=== PATIENT | female | born 1990 | race Two or more races ===

== ENCOUNTER → 2017-06-23 | Outpatient (CLI) | payer OTHER ==
[~2017-06-23] VITALS: Ht 175.3 cm; Wt 118.0 kg
[~2017-06-23] MED LIST: COLL30OI TP; LEVE500T53 PO; LEVO50 PO; NAPR-58 PO; RIVA15T PO
[2017-06-23 13:37] VITALS: BP 131/72
== END | disposition home or self-care (01) ==
LOC: HBOWC 13:05
PROVIDERS: ATTEND Emergency Medicine
DX: I87.2 Venous insufficiency (chronic) (peripheral) (principal); L97.821 Non-pressure chronic ulcer of other part of left lower leg limited to breakdown of skin; E03.9 Hypothyroidism, unspecified; E66.9 Obesity, unspecified; Z86.718 Personal history of other venous thrombosis and embolism
CPT/HCPCS: 97597; G0463

== ENCOUNTER → 2017-07-14 | Outpatient (CLI) | payer OTHER ==
[~2017-07-14] MED LIST changes: +LIDOCAINE HCL 2% 5 ML JELLY TP ONE; +SULF1TAB42 PO
[2017-07-14 14:56] VITALS: BP 141/80
== END | disposition home or self-care (01) ==
LOC: HBOWC 14:44
PROVIDERS: ATTEND Emergency Medicine
DX: S81.802D Unspecified open wound, left lower leg, subsequent encounter (principal); E03.9 Hypothyroidism, unspecified; E66.9 Obesity, unspecified; Z86.718 Personal history of other venous thrombosis and embolism
CPT/HCPCS: 11042

== ENCOUNTER → 2017-07-24 | Outpatient (CLI) | payer OTHER ==
[~2017-07-24] MED LIST changes: -LIDOCAINE HCL 2% 5 ML JELLY TP ONE
[2017-07-24 11:30] VITALS: BP 125/63
== END | disposition home or self-care (01) ==
LOC: HBOWC 11:00
PROVIDERS: ATTEND Emergency Medicine
DX: S81.802D Unspecified open wound, left lower leg, subsequent encounter (principal); E66.9 Obesity, unspecified; E03.9 Hypothyroidism, unspecified; Z79.01 Long term (current) use of anticoagulants; Z86.718 Personal history of other venous thrombosis and embolism; X58.XXXD Exposure to other specified factors, subsequent encounter
CPT/HCPCS: 11042

== ENCOUNTER → 2017-07-31 | Outpatient (CLI) | payer OTHER ==
[~2017-07-31] MED LIST changes: +LIDOCAINE HCL 2% 5 ML JELLY TP ONE
[2017-07-31 10:50] VITALS: BP 137/81
== END | disposition home or self-care (01) ==
LOC: HBOWC 10:17
PROVIDERS: ATTEND Emergency Medicine
DX: S91.002D Unspecified open wound, left ankle, subsequent encounter (principal); S81.802D Unspecified open wound, left lower leg, subsequent encounter; I87.8 Other specified disorders of veins; E03.9 Hypothyroidism, unspecified; E66.9 Obesity, unspecified; Z86.718 Personal history of other venous thrombosis and embolism; Z79.01 Long term (current) use of anticoagulants; X58.XXXD Exposure to other specified factors, subsequent encounter
CPT/HCPCS: 11042

== ENCOUNTER → 2017-08-14 | Outpatient (CLI) | payer OTHER ==
[2017-08-14 11:10] VITALS: BP 116/71
== END | disposition home or self-care (01) ==
LOC: HBOWC 10:55
PROVIDERS: ATTEND Emergency Medicine
DX: S91.002D Unspecified open wound, left ankle, subsequent encounter (principal); S81.802D Unspecified open wound, left lower leg, subsequent encounter; I87.2 Venous insufficiency (chronic) (peripheral); E03.8 Other specified hypothyroidism; E66.9 Obesity, unspecified; Z79.01 Long term (current) use of anticoagulants; Z86.718 Personal history of other venous thrombosis and embolism; X58.XXXD Exposure to other specified factors, subsequent encounter
CPT/HCPCS: 11042

== ENCOUNTER → 2017-09-14 | Outpatient (CLI) | payer OTHER ==
[~2017-09-14] MED LIST changes: -LIDOCAINE HCL 2% 5 ML JELLY TP ONE; +LIDOCAINE HCL 4% 50 ML SOLUTION TP ONE
[2017-09-14 11:46] VITALS: BP 144/83
== END | disposition home or self-care (01) ==
LOC: HBOWC 10:57
PROVIDERS: ATTEND Surgery Plastic and Reconstructive Surgery
DX: S81.802D Unspecified open wound, left lower leg, subsequent encounter (principal); S91.002D Unspecified open wound, left ankle, subsequent encounter; I87.2 Venous insufficiency (chronic) (peripheral); E03.8 Other specified hypothyroidism; E66.9 Obesity, unspecified; Z79.01 Long term (current) use of anticoagulants; Z86.718 Personal history of other venous thrombosis and embolism; X58.XXXD Exposure to other specified factors, subsequent encounter
CPT/HCPCS: 11042

== ENCOUNTER → 2017-09-29 | Outpatient (CLI) | payer OTHER ==
[~2017-09-29] MED LIST changes: +GENTAMICIN SULFATE 0.1% 15 GM OINTMENT TP ONE; +LIDOCAINE HCL 2% 5 ML JELLY TP ONE; -LIDOCAINE HCL 4% 50 ML SOLUTION TP ONE
[2017-09-29 13:30] VITALS: BP 143/80
== END | disposition home or self-care (01) ==
LOC: HBOWC 13:36
PROVIDERS: ATTEND Emergency Medicine
DX: S81.802D Unspecified open wound, left lower leg, subsequent encounter (principal); E66.9 Obesity, unspecified; E03.9 Hypothyroidism, unspecified; Z86.718 Personal history of other venous thrombosis and embolism; X58.XXXD Exposure to other specified factors, subsequent encounter
CPT/HCPCS: 11042

== ENCOUNTER → 2017-10-06 | Outpatient (CLI) | payer OTHER ==
[~2017-10-06] MED LIST changes: -COLL30OI TP; -LIDOCAINE HCL 2% 5 ML JELLY TP ONE; +LIDOCAINE HCL 4% 50 ML SOLUTION TP ONE; -SULF1TAB42 PO
[2017-10-06 14:07] VITALS: BP 116/57
== END | disposition home or self-care (01) ==
LOC: HBOWC 13:19
PROVIDERS: ATTEND Emergency Medicine
DX: S81.802D Unspecified open wound, left lower leg, subsequent encounter (principal); S91.002D Unspecified open wound, left ankle, subsequent encounter; E66.9 Obesity, unspecified; E03.8 Other specified hypothyroidism; I87.2 Venous insufficiency (chronic) (peripheral); Z86.718 Personal history of other venous thrombosis and embolism; Z79.01 Long term (current) use of anticoagulants; X58.XXXD Exposure to other specified factors, subsequent encounter
CPT/HCPCS: 11042

== ENCOUNTER → 2017-10-13 | Outpatient (CLI) | payer OTHER ==
[2017-10-13 13:51] VITALS: BP 125/70
== END | disposition home or self-care (01) ==
LOC: HBOWC 12:44
PROVIDERS: ATTEND Emergency Medicine
DX: S81.802D Unspecified open wound, left lower leg, subsequent encounter (principal); I87.2 Venous insufficiency (chronic) (peripheral); E03.8 Other specified hypothyroidism; E66.9 Obesity, unspecified; Z86.718 Personal history of other venous thrombosis and embolism; Z79.01 Long term (current) use of anticoagulants; X58.XXXD Exposure to other specified factors, subsequent encounter
CPT/HCPCS: 11042

== ENCOUNTER → 2017-10-29 | Outpatient (CLI) | payer OTHER ==
[~2017-10-29] MED LIST changes: -GENTAMICIN SULFATE 0.1% 15 GM OINTMENT TP ONE; +LIDOCAINE HCL 2% 5 ML JELLY TP ONE; -LIDOCAINE HCL 4% 50 ML SOLUTION TP ONE
[2017-10-29 13:30] VITALS: BP 124/70
== END | disposition home or self-care (01) ==
LOC: HBOWC 13:30
PROVIDERS: ATTEND Nurse Practitioner Adult Health
DX: I87.2 Venous insufficiency (chronic) (peripheral) (principal); L97.821 Non-pressure chronic ulcer of other part of left lower leg limited to breakdown of skin; E66.9 Obesity, unspecified; E03.9 Hypothyroidism, unspecified; Z86.718 Personal history of other venous thrombosis and embolism
CPT/HCPCS: 11042

== ENCOUNTER → 2017-11-05 | Outpatient (CLI) | payer OTHER ==
[~2017-11-05] MED LIST changes: +GENTAMICIN SULFATE 0.1% 15 GM OINTMENT TP ONE; +LIDOCAINE HCL 2% 5 ML JELLY ONE; -LIDOCAINE HCL 2% 5 ML JELLY TP ONE; +LIDOCAINE HCL 4% 50 ML SOLUTION ONE
[2017-11-05 13:44] VITALS: BP 133/67
== END | disposition home or self-care (01) ==
LOC: HBOWC 13:30
PROVIDERS: ATTEND Nurse Practitioner Adult Health
DX: I87.2 Venous insufficiency (chronic) (peripheral) (principal); L97.821 Non-pressure chronic ulcer of other part of left lower leg limited to breakdown of skin; E03.9 Hypothyroidism, unspecified; E66.9 Obesity, unspecified; Z86.718 Personal history of other venous thrombosis and embolism

== ENCOUNTER → 2017-11-19 | Outpatient (CLI) | payer OTHER ==
[~2017-11-19] MED LIST changes: +GENTAMICIN 0.1% TP; -LIDOCAINE HCL 2% 5 ML JELLY ONE; -LIDOCAINE HCL 4% 50 ML SOLUTION ONE; +LIDOCAINE HCL 4% 50 ML SOLUTION TP ONE
[2017-11-19 15:00] VITALS: BP 130/81
== END | disposition home or self-care (01) ==
LOC: HBOWC 13:52
PROVIDERS: ATTEND Nurse Practitioner Adult Health
DX: I87.2 Venous insufficiency (chronic) (peripheral) (principal); L97.821 Non-pressure chronic ulcer of other part of left lower leg limited to breakdown of skin; E03.9 Hypothyroidism, unspecified; E66.9 Obesity, unspecified; E03.8 Other specified hypothyroidism; Z86.718 Personal history of other venous thrombosis and embolism; Z79.01 Long term (current) use of anticoagulants
CPT/HCPCS: 11042

== ENCOUNTER → 2017-11-26 | Outpatient (CLI) | payer OTHER ==
[2017-11-26 13:43] VITALS: BP 116/69
== END | disposition home or self-care (01) ==
LOC: HBOWC 13:15
PROVIDERS: ATTEND Nurse Practitioner Adult Health
DX: S91.002D Unspecified open wound, left ankle, subsequent encounter (principal); I87.2 Venous insufficiency (chronic) (peripheral); E66.9 Obesity, unspecified; E03.8 Other specified hypothyroidism; Z86.718 Personal history of other venous thrombosis and embolism; Z79.01 Long term (current) use of anticoagulants; X58.XXXD Exposure to other specified factors, subsequent encounter
CPT/HCPCS: 11042

== ENCOUNTER → 2017-12-17 | Outpatient (CLI) | payer OTHER ==
[2017-12-17 13:50] VITALS: BP 131/72
== END | disposition home or self-care (01) ==
LOC: HBOWC 13:24
PROVIDERS: ATTEND Nurse Practitioner Adult Health
DX: L97.821 Non-pressure chronic ulcer of other part of left lower leg limited to breakdown of skin (principal); I87.2 Venous insufficiency (chronic) (peripheral); E66.9 Obesity, unspecified; E03.8 Other specified hypothyroidism; Z86.718 Personal history of other venous thrombosis and embolism; Z79.01 Long term (current) use of anticoagulants

== ENCOUNTER → 2017-12-31 | Outpatient (CLI) | payer OTHER ==
[~2017-12-31] MED LIST changes: -GENTAMICIN SULFATE 0.1% 15 GM OINTMENT TP ONE; -LIDOCAINE HCL 4% 50 ML SOLUTION TP ONE
[2017-12-31 14:08] VITALS: BP 126/67
== END | disposition home or self-care (01) ==
LOC: HBOWC 13:07
PROVIDERS: ATTEND Nurse Practitioner Adult Health
DX: L97.821 Non-pressure chronic ulcer of other part of left lower leg limited to breakdown of skin (principal); I87.2 Venous insufficiency (chronic) (peripheral); E66.9 Obesity, unspecified; E03.8 Other specified hypothyroidism; Z86.718 Personal history of other venous thrombosis and embolism

== ENCOUNTER → 2018-01-07 | Outpatient (CLI) | payer OTHER ==
[~2018-01-07] MED LIST changes: +CHLORHEXIDINE GLUCONATE 4% 118 ML TOPICAL LIQUID TP ONE; -GENTAMICIN 0.1% TP
[2018-01-07 14:14] VITALS: BP 129/77
== END | disposition home or self-care (01) ==
LOC: HBOWC 14:09
PROVIDERS: ATTEND Nurse Practitioner Adult Health
DX: I87.2 Venous insufficiency (chronic) (peripheral) (principal); L97.821 Non-pressure chronic ulcer of other part of left lower leg limited to breakdown of skin; E66.9 Obesity, unspecified; E03.8 Other specified hypothyroidism; Z79.01 Long term (current) use of anticoagulants; Z86.718 Personal history of other venous thrombosis and embolism

== ENCOUNTER → 2018-02-18 | Outpatient (CLI) | payer OTHER ==
[~2018-02-18] MED LIST changes: -CHLORHEXIDINE GLUCONATE 4% 118 ML TOPICAL LIQUID TP ONE
[2018-02-18 13:33] VITALS: BP 121/64
== END | disposition home or self-care (01) ==
LOC: HBOWC 13:14
PROVIDERS: ATTEND Nurse Practitioner Adult Health
DX: E11.622 Type 2 diabetes mellitus with other skin ulcer (principal); L97.821 Non-pressure chronic ulcer of other part of left lower leg limited to breakdown of skin; S91.002D Unspecified open wound, left ankle, subsequent encounter; I87.2 Venous insufficiency (chronic) (peripheral); E66.9 Obesity, unspecified; E03.8 Other specified hypothyroidism; Z86.718 Personal history of other venous thrombosis and embolism; Z79.01 Long term (current) use of anticoagulants; X58.XXXD Exposure to other specified factors, subsequent encounter

== ENCOUNTER → 2018-02-25 | Outpatient (CLI) | payer OTHER ==
[2018-02-25 14:51] VITALS: BP 144/71
== END | disposition home or self-care (01) ==
LOC: HBOWC 13:26
PROVIDERS: ATTEND Nurse Practitioner Adult Health
DX: E11.622 Type 2 diabetes mellitus with other skin ulcer (principal); L97.321 Non-pressure chronic ulcer of left ankle limited to breakdown of skin; I87.8 Other specified disorders of veins; E66.9 Obesity, unspecified; E03.8 Other specified hypothyroidism; Z86.718 Personal history of other venous thrombosis and embolism; Z79.01 Long term (current) use of anticoagulants

== ENCOUNTER → 2018-03-11 | Outpatient (CLI) | payer OTHER ==
[2018-03-11 13:44] VITALS: BP 138/83
== END | disposition home or self-care (01) ==
LOC: HBOWC 13:30
PROVIDERS: ATTEND Nurse Practitioner Adult Health
DX: E11.622 Type 2 diabetes mellitus with other skin ulcer (principal); L97.321 Non-pressure chronic ulcer of left ankle limited to breakdown of skin; L97.221 Non-pressure chronic ulcer of left calf limited to breakdown of skin; S81.801D Unspecified open wound, right lower leg, subsequent encounter; E66.9 Obesity, unspecified; E03.9 Hypothyroidism, unspecified; I87.2 Venous insufficiency (chronic) (peripheral); Z86.718 Personal history of other venous thrombosis and embolism; Z79.01 Long term (current) use of anticoagulants; X58.XXXD Exposure to other specified factors, subsequent encounter

== ENCOUNTER → 2018-03-18 | Outpatient (CLI) | payer OTHER ==
[2018-03-18 14:28] VITALS: BP 127/77
== END | disposition home or self-care (01) ==
LOC: HBOWC 14:11
PROVIDERS: ATTEND Nurse Practitioner Adult Health
DX: L97.321 Non-pressure chronic ulcer of left ankle limited to breakdown of skin (principal); E66.9 Obesity, unspecified; I87.2 Venous insufficiency (chronic) (peripheral); E03.8 Other specified hypothyroidism; Z86.718 Personal history of other venous thrombosis and embolism; Z79.01 Long term (current) use of anticoagulants

== ENCOUNTER → 2018-03-25 | Outpatient (CLI) | payer OTHER ==
[2018-03-25 14:59] VITALS: BP 146/92
== END | disposition home or self-care (01) ==
LOC: HBOWC 13:34
PROVIDERS: ATTEND Nurse Practitioner Adult Health
DX: L97.321 Non-pressure chronic ulcer of left ankle limited to breakdown of skin (principal); L97.221 Non-pressure chronic ulcer of left calf limited to breakdown of skin; E66.9 Obesity, unspecified; E03.8 Other specified hypothyroidism; I87.2 Venous insufficiency (chronic) (peripheral); E03.9 Hypothyroidism, unspecified; Z86.718 Personal history of other venous thrombosis and embolism; Z79.01 Long term (current) use of anticoagulants

== ENCOUNTER → 2018-04-08 | Outpatient (CLI) | payer OTHER ==
[2018-04-08 13:56] VITALS: BP 137/88
== END | disposition home or self-care (01) ==
LOC: HBOWC 13:40
PROVIDERS: ATTEND Nurse Practitioner Adult Health
DX: L97.321 Non-pressure chronic ulcer of left ankle limited to breakdown of skin (principal); I87.2 Venous insufficiency (chronic) (peripheral); E66.9 Obesity, unspecified; E03.8 Other specified hypothyroidism; Z79.01 Long term (current) use of anticoagulants; Z86.718 Personal history of other venous thrombosis and embolism

== ENCOUNTER → 2018-04-22 | Outpatient (CLI) | payer OTHER ==
[2018-04-22 13:54] VITALS: BP 135/83
== END | disposition home or self-care (01) ==
LOC: HBOWC 13:25
PROVIDERS: ATTEND Nurse Practitioner Adult Health
DX: L97.321 Non-pressure chronic ulcer of left ankle limited to breakdown of skin (principal); I87.2 Venous insufficiency (chronic) (peripheral); E66.9 Obesity, unspecified; E03.8 Other specified hypothyroidism; Z79.01 Long term (current) use of anticoagulants; Z86.718 Personal history of other venous thrombosis and embolism
CPT/HCPCS: 97597

== ENCOUNTER → 2018-05-06 | Outpatient (CLI) | payer OTHER ==
[2018-05-06 13:33] VITALS: BP 118/65
== END | disposition home or self-care (01) ==
LOC: HBOWC 13:23
PROVIDERS: ATTEND Nurse Practitioner Adult Health
DX: L97.321 Non-pressure chronic ulcer of left ankle limited to breakdown of skin (principal); I87.2 Venous insufficiency (chronic) (peripheral); E66.9 Obesity, unspecified; E03.8 Other specified hypothyroidism; Z79.01 Long term (current) use of anticoagulants; Z86.718 Personal history of other venous thrombosis and embolism
CPT/HCPCS: 11042

== ENCOUNTER → 2018-05-20 | Outpatient (CLI) | payer OTHER ==
[2018-05-20 11:57] VITALS: BP 140/76
== END | disposition home or self-care (01) ==
LOC: HBOWC 11:14
PROVIDERS: ATTEND Nurse Practitioner Adult Health
DX: L97.321 Non-pressure chronic ulcer of left ankle limited to breakdown of skin (principal); I87.2 Venous insufficiency (chronic) (peripheral); E66.9 Obesity, unspecified; E03.8 Other specified hypothyroidism; Z79.01 Long term (current) use of anticoagulants; Z86.718 Personal history of other venous thrombosis and embolism

== ENCOUNTER → 2018-05-27 | Outpatient (CLI) | payer OTHER ==
[2018-05-27 11:10] VITALS: BP 146/76
== END | disposition home or self-care (01) ==
LOC: HBOWC 10:58
PROVIDERS: ATTEND Nurse Practitioner Adult Health
DX: L97.321 Non-pressure chronic ulcer of left ankle limited to breakdown of skin (principal); I87.2 Venous insufficiency (chronic) (peripheral); E66.9 Obesity, unspecified; E03.8 Other specified hypothyroidism; Z79.01 Long term (current) use of anticoagulants; Z86.718 Personal history of other venous thrombosis and embolism

== ENCOUNTER → 2018-06-03 | Outpatient (CLI) | payer OTHER ==
[2018-06-03 11:25] VITALS: BP 126/67
== END | disposition home or self-care (01) ==
LOC: HBOWC 11:10
PROVIDERS: ATTEND Nurse Practitioner Adult Health
DX: L97.321 Non-pressure chronic ulcer of left ankle limited to breakdown of skin (principal); I87.2 Venous insufficiency (chronic) (peripheral); E66.9 Obesity, unspecified; E03.8 Other specified hypothyroidism; Z79.01 Long term (current) use of anticoagulants; Z86.718 Personal history of other venous thrombosis and embolism

== ENCOUNTER → 2018-06-17 | Outpatient (CLI) | payer OTHER ==
[2018-06-17 11:26] VITALS: BP 130/63
== END | disposition home or self-care (01) ==
LOC: HBOWC 11:18
PROVIDERS: ATTEND Nurse Practitioner Adult Health
DX: L97.321 Non-pressure chronic ulcer of left ankle limited to breakdown of skin (principal); I87.2 Venous insufficiency (chronic) (peripheral); E66.9 Obesity, unspecified; E03.8 Other specified hypothyroidism; Z79.01 Long term (current) use of anticoagulants; Z86.718 Personal history of other venous thrombosis and embolism

== ENCOUNTER → 2018-07-01 | Outpatient (CLI) | payer OTHER ==
[2018-07-01 11:35] VITALS: BP 144/87
== END | disposition home or self-care (01) ==
LOC: HBOWC 11:30
PROVIDERS: ATTEND Nurse Practitioner Adult Health
DX: L97.321 Non-pressure chronic ulcer of left ankle limited to breakdown of skin (principal); L97.821 Non-pressure chronic ulcer of other part of left lower leg limited to breakdown of skin; I87.2 Venous insufficiency (chronic) (peripheral); E66.9 Obesity, unspecified; E03.8 Other specified hypothyroidism; Z86.718 Personal history of other venous thrombosis and embolism; Z79.01 Long term (current) use of anticoagulants

== ENCOUNTER → 2018-07-08 | Outpatient (CLI) | payer OTHER ==
[2018-07-08 11:01] VITALS: BP 128/80
== END | disposition home or self-care (01) ==
LOC: HBOWC 10:44
PROVIDERS: ATTEND Nurse Practitioner Adult Health
DX: L97.321 Non-pressure chronic ulcer of left ankle limited to breakdown of skin (principal); L97.821 Non-pressure chronic ulcer of other part of left lower leg limited to breakdown of skin; I87.2 Venous insufficiency (chronic) (peripheral); E66.9 Obesity, unspecified; E03.8 Other specified hypothyroidism; Z86.718 Personal history of other venous thrombosis and embolism; Z79.01 Long term (current) use of anticoagulants

== ENCOUNTER → 2018-07-15 | Outpatient (CLI) | payer OTHER ==
[2018-07-15 11:22] VITALS: BP 110/59
== END | disposition home or self-care (01) ==
LOC: HBOWC 10:57
PROVIDERS: ATTEND Nurse Practitioner Adult Health
DX: L97.321 Non-pressure chronic ulcer of left ankle limited to breakdown of skin (principal); L97.821 Non-pressure chronic ulcer of other part of left lower leg limited to breakdown of skin; I87.2 Venous insufficiency (chronic) (peripheral); E66.9 Obesity, unspecified; E03.9 Hypothyroidism, unspecified; Z86.718 Personal history of other venous thrombosis and embolism; Z79.01 Long term (current) use of anticoagulants

== ENCOUNTER → 2018-07-29 | Outpatient (CLI) | payer OTHER ==
[~2018-07-29] MED LIST changes: +CHLORHEXIDINE GLUCONATE 4% 118 ML TOPICAL LIQUID TP ONE
[2018-07-29 11:26] VITALS: BP 133/73
== END | disposition home or self-care (01) ==
LOC: HBOWC 10:54
PROVIDERS: ATTEND Nurse Practitioner Adult Health
DX: L97.321 Non-pressure chronic ulcer of left ankle limited to breakdown of skin (principal); L97.821 Non-pressure chronic ulcer of other part of left lower leg limited to breakdown of skin; I87.2 Venous insufficiency (chronic) (peripheral); E66.9 Obesity, unspecified; E03.9 Hypothyroidism, unspecified; Z86.718 Personal history of other venous thrombosis and embolism; Z79.01 Long term (current) use of anticoagulants

== ENCOUNTER → 2018-08-19 | Outpatient (CLI) | payer OTHER ==
[~2018-08-19] MED LIST changes: -CHLORHEXIDINE GLUCONATE 4% 118 ML TOPICAL LIQUID TP ONE
[2018-08-19 11:50] VITALS: BP 139/90
== END | disposition home or self-care (01) ==
LOC: HBOWC 10:53
PROVIDERS: ATTEND Nurse Practitioner Adult Health
DX: L97.321 Non-pressure chronic ulcer of left ankle limited to breakdown of skin (principal); L97.821 Non-pressure chronic ulcer of other part of left lower leg limited to breakdown of skin; I87.2 Venous insufficiency (chronic) (peripheral); E66.9 Obesity, unspecified; E03.9 Hypothyroidism, unspecified; Z86.718 Personal history of other venous thrombosis and embolism; Z79.01 Long term (current) use of anticoagulants

== ENCOUNTER → 2018-08-26 | Outpatient (CLI) | payer OTHER ==
[~2018-08-26] MED LIST changes: +LIDOCAINE 2% 5 ML JELLY TP ONE
[2018-08-26 11:14] VITALS: BP 126/75
== END | disposition home or self-care (01) ==
LOC: HBOWC 10:23
PROVIDERS: ATTEND Nurse Practitioner Adult Health
DX: L97.321 Non-pressure chronic ulcer of left ankle limited to breakdown of skin (principal); L97.821 Non-pressure chronic ulcer of other part of left lower leg limited to breakdown of skin; I87.2 Venous insufficiency (chronic) (peripheral); E66.9 Obesity, unspecified; E03.9 Hypothyroidism, unspecified; Z86.718 Personal history of other venous thrombosis and embolism; Z79.01 Long term (current) use of anticoagulants

== ENCOUNTER → 2018-09-02 | Outpatient (CLI) | payer OTHER ==
[~2018-09-02] MED LIST changes: -LIDOCAINE 2% 5 ML JELLY TP ONE
[2018-09-02 10:56] VITALS: BP 128/85
== END | disposition home or self-care (01) ==
LOC: HBOWC 10:37
PROVIDERS: ATTEND Nurse Practitioner Adult Health
DX: L97.321 Non-pressure chronic ulcer of left ankle limited to breakdown of skin (principal); S81.802D Unspecified open wound, left lower leg, subsequent encounter; I87.2 Venous insufficiency (chronic) (peripheral); I82.409 Acute embolism and thrombosis of unspecified deep veins of unspecified lower extremity; E03.9 Hypothyroidism, unspecified; E66.9 Obesity, unspecified; Z79.01 Long term (current) use of anticoagulants; X58.XXXD Exposure to other specified factors, subsequent encounter

== ENCOUNTER → 2018-09-09 | Outpatient (CLI) | payer OTHER ==
[2018-09-09 11:30] VITALS: BP 139/70
== END | disposition home or self-care (01) ==
LOC: HBOWC 11:26
PROVIDERS: ATTEND Nurse Practitioner Adult Health
DX: L97.322 Non-pressure chronic ulcer of left ankle with fat layer exposed (principal); I87.2 Venous insufficiency (chronic) (peripheral); I82.493 Acute embolism and thrombosis of other specified deep vein of lower extremity, bilateral; E03.9 Hypothyroidism, unspecified; E66.9 Obesity, unspecified; Z79.01 Long term (current) use of anticoagulants

== ENCOUNTER → 2018-09-23 | Outpatient (CLI) | payer OTHER ==
[2018-09-23 11:05] VITALS: BP 126/80
== END | disposition home or self-care (01) ==
LOC: HBOWC 10:50
PROVIDERS: ATTEND Nurse Practitioner Adult Health
DX: L97.822 Non-pressure chronic ulcer of other part of left lower leg with fat layer exposed (principal); L97.321 Non-pressure chronic ulcer of left ankle limited to breakdown of skin; I82.5Z3 Chronic embolism and thrombosis of unspecified deep veins of distal lower extremity, bilateral; I87.2 Venous insufficiency (chronic) (peripheral); E03.9 Hypothyroidism, unspecified; E66.9 Obesity, unspecified; Z79.01 Long term (current) use of anticoagulants

== ENCOUNTER → 2018-10-14 | Outpatient (CLI) | payer OTHER ==
[2018-10-14 11:10] VITALS: BP 135/77
== END | disposition home or self-care (01) ==
LOC: HBOWC 10:49
PROVIDERS: ATTEND Nurse Practitioner Adult Health
DX: L97.822 Non-pressure chronic ulcer of other part of left lower leg with fat layer exposed (principal); L97.321 Non-pressure chronic ulcer of left ankle limited to breakdown of skin; I87.2 Venous insufficiency (chronic) (peripheral); I82.409 Acute embolism and thrombosis of unspecified deep veins of unspecified lower extremity; E03.9 Hypothyroidism, unspecified; E66.9 Obesity, unspecified; Z79.01 Long term (current) use of anticoagulants

== ENCOUNTER → 2018-10-28 | Outpatient (CLI) | payer OTHER ==
[2018-10-28 11:55] VITALS: BP 141/85
== END | disposition home or self-care (01) ==
LOC: HBOWC 11:37
PROVIDERS: ATTEND Nurse Practitioner Adult Health
DX: L97.322 Non-pressure chronic ulcer of left ankle with fat layer exposed (principal); I87.2 Venous insufficiency (chronic) (peripheral); I82.593 Chronic embolism and thrombosis of other specified deep vein of lower extremity, bilateral; E03.9 Hypothyroidism, unspecified; E66.9 Obesity, unspecified; Z79.01 Long term (current) use of anticoagulants

== ENCOUNTER 2021-04-11 19:38 | Emergency (ER) | payer OTHER ==
[~2021-04-11] VITALS: Ht 175.3 cm; Wt 113.6 kg
[~2021-04-11 19:38] MED LIST changes: +NAPR-1025 PO; -NAPR-58 PO
[2021-04-11 20:10] LABS: GLUCOSE,POINT OF CARE 91 MG/DL (70-110)
[2021-04-11 20:34] LABS: BASOPHILS % (AUTO) 0.2 % (0.0-2.0); EOSINOPHILS % (AUTO) 3.4 % (1.0-6.0); HEMATOCRIT 34.9 % (36-46); LYMPHOCYTES # (AUTO) 1.1 K/uL (1.0-4.8); LYMPHOCYTES % (AUTO) 28.2 % (22.0-44.0); MEAN CORPUSCULAR HEMOGLOBIN 31.3 pg (26.0-34.0); MEAN CORPUSCULAR HGB CONC 34.2 G/dL (31.0-37.0); MEAN CORPUSCULAR VOLUME 91 fL (80-100); MONOCYTES # (AUTO) 0.3 K/uL (0.1-1.0); MONOCYTES % (AUTO) 7.8 % (2.0-9.0); NEUTROPHILS # (AUTO) 2.3 K/uL (1.8-7.7); NEUTROPHILS % (AUTO) 60.4 % (40.0-70.0); PLATELET COUNT (AUTO) 101 K/uL (150-450); RED BLOOD CELL COUNT(AUTO) 3.83 MIL/uL (4.00-5.20); RED CELL DISTRIBUTION WIDTH 12.8 % (11.5-14.5)
[2021-04-11 20:43] LABS: CALCIUM, TOTAL 8.7 mg/dL (8.8-10.5); CARBON DIOXIDE 25 mmol/L (22-29); CHLORIDE 105 mmol/L (98-107); CREATININE 1.16 mg/dL (0.60-1.30); GLOMERULAR FILTR. RATE CALC 55 mL/min (>60); GLUCOSE,RANDOM 91 mg/dL (70-110); UREA NITROGEN, BLOOD 18 mg/dL (7-18)
[2021-04-11 20:54] LABS: ALANINE AMINOTRANSFERASE 34 U/L (12-78); ALBUMIN 3.7 g/dL (3.4-5.0); ALKALINE PHOSPHATASE 90 U/L (46-116); ANION GAP 9 mmol/L (8-16); ASPARTATE AMINOTRANSFERASE 21 U/L (15-37); BILIRUBIN,TOTAL 0.2 mg/dL (0.1-1.0); HCG,QUANTITATIVE < 1 mIU/mL (0-6); POTASSIUM 4.1 mmol/L (3.5-5.1); SODIUM SERUM 139 mmol/L (136-145); TOTAL PROTEIN, SERUM 7.3 g/dL (6.4-8.2)
[2021-04-11 22:15] VITALS: BP 157/99
[2021-04-11] MEDS ORDERED: LevETIRAcetam 750 MG in DEXTROSE 5%-WATER 100 ML IV ONE (22:15)
[2021-04-11 22:32] LABS: AMPHET/METH SCREEN,URINE NEGATIVE (NEGATIVE); BARBITURATE SCREEN, URINE NEGATIVE (NEGATIVE); BENZODIAZEPINES SCREEN,URINE NEGATIVE (NEGATIVE); CANNABINOID SCREEN,URINE NEGATIVE (NEGATIVE); COCAINE SCREEN,URINE NEGATIVE (NEGATIVE); METHADONE SCREEN, URINE NEGATIVE (NEGATIVE); OPIATE SCREEN,URINE NEGATIVE (NEGATIVE)
[2021-04-11 22:36] LABS: PHENCYCLIDINE SCREEN,URINE NEGATIVE (NEGATIVE)
== END 2021-04-11 22:50 | disposition home or self-care (01) ==
LOC: EMS 19:45
DX: G40.909 Epilepsy, unspecified, not intractable, without status epilepticus (principal); I51.9 Heart disease, unspecified; E78.00 Pure hypercholesterolemia, unspecified; Z91.018 Allergy to other foods
CPT/HCPCS: 36415; 70450; 80053; 80307; 82962; 84702; 85025; 96374; 99285; G0480; J0712; J7060